=== PATIENT | male | born 1970 | race Caucasian/White ===

== ENCOUNTER 2016-11-12 12:00 | Inpatient (IN) | payer OTHER ==
[~2016-11-12] VITALS: Ht 172.7 cm; Wt 90.7 kg
--- NOTE | ~2016-11-12 | PN ---
Unit #: [id number] #: [id number] Patient: KARON PENNY [id number] [facility] [address] [place] [address] [id number] MR#: [id number] NAME: KARON PENNY ROOM: P254 Age: 45 Sex: M Admission Date: 11/12/2016 : 1970 Attending Physician: Lucille Garcia M.D. Admitting Physician: Lucille Garcia M.D. Primary Care Physician: [place] Doctor Not In System [facility] PROGRESS NOTES DATE 11/20/2016 DISCUSSION Mr. Penny is a 45-year-old white male who was seen today and chart was reviewed and case was discussed with the staff. He has been anxious, withdrawn and seclusive to himself. Meanwhile, he has been cooperative with treatment recommendations and has been taking medications and tolerating them fairly well with no reported side effects. MENTAL STATUS EXAMINATION Middle-aged white male who was casually dressed with fair personal hygiene and appears to be in no acute distress or discomfort. He was awake and alert on interaction with intact orientation. His mood was anxious and depressed with congruent affect. His speech is slow and restricted in content. He denies any current suicidal or homicidal ideation and also denies any auditory or visual hallucinations. His insight and judgement remains slightly impaired. TREATMENT PLAN 1. Will continue on his current medications and treatment protocol. Will monitor his response to the medications and make further adjustments as needed. 2. Will continue to follow up. Dictated by... Antonino Matias/lexis TD: 11/20/2016 18:40 JOB #: [id number] Unit #: [id number] #: [id number] Patient: KARON PENNY PROGRESS NOTES Page 1 of 1 X Lucille Garcia MD PROGRESS NOTE
--- NOTE | ~2016-11-12 | HP ---
Unit #: [id number] #: [id number] Patient: ANTONIO PENNY [id number] [facility] [address] [place] [address] [id number] I MR#: [id number] NAME: ANTONIO PENNY ROOM: P254 Age: 45 Sex: M Admission Date: 11/12/2016 : 1970 Attending Physician: Lucille Garcia M.D. Admitting Physician: Lucille Garcia M.D. Primary Care Physician: Generic Doctor Not In System HISTORY AND PHYSICAL HISTORY OF PRESENT ILLNESS Antonio is a 45-year-old male admitted on 11/12/[address] [place] [address] for depression with attempted suicide by overdosing on his medications. MEDICAL HISTORY Hypertension and herniated disc. PAST SURGICAL HISTORY Left arm fracture with surgical repair. SOCIAL HISTORY Smokes less than a pack of cigarettes daily, denies alcohol use and does report occasional use of cocaine. He is currently and homeless. FAMILY HISTORY Noncontributory. REVIEW OF SYSTEMS CONSTITUTIONAL: No fever or chills. HEENT: Denies any sore throat, ear pain or runny nose. CARDIOVASCULAR: Denies chest pain, irregular heart rhythm or palpitations. CHEST: Denies shortness of breath or cough. No hemoptysis. GASTROINTESTINAL: Denies nausea, vomiting, diarrhea or chronic constipation. ENDOCRINE: Denies history of increased thirst or urination. No recent significant weight loss or gain. GENITOURINARY: Denies dysuria, frequency, or hematuria. SKIN: Denies any rashes. HEMATOLOGIC: Denies history of increased bleeding or bruising. MUSCULOSKELETAL: Denies any hot, swollen joints. No generalized muscle pain. NEUROLOGIC: Denies problems with vision or speech. No frequent, severe headaches. No numbness, tingling or weakness in any extremities. Denies loss of bladder or bowel control. CURRENT MEDICATIONS 1. Gabapentin 2. Olanzapine 3. Mirtazapine 4. Perphenazine 5. Wellbutrin Unit #: [id number] #: [id number] Patient: ANTONIO PENNY 6. Pantoprazole 7. Atenolol ALLERGIES No known drug allergies. PHYSICAL EXAMINATION GENERAL: Alert, oriented, in no acute distress. VITAL SIGNS: Blood pressure 143/84, heart rate 88, temperature 98.3. HEIGHT: 5 foot 8 inches. WEIGHT: 200 pounds. SKIN: Warm and dry without rash or lesion. HEENT: Normocephalic. TMs not viewed. Oral and nasal passages clear. Conjunctivae clear. PERRLA. EOMs intact. NECK: Supple without lymphadenopathy or thyromegaly. HEART: Regular rate and rhythm without murmur. LUNGS: Clear. ABDOMEN: Soft, nontender, without masses or hepatosplenomegaly. : Not done. EXTREMITIES: No evidence of cyanosis, clubbing or edema. Moves all without focal deficit. NEUROLOGICAL: Grossly within normal limits. Cranial Nerves: II: Visual mcdonald are intact. III, IV AND : Extraocular movements are intact. Pupils are equal, round and reactive to light. V: Facial sensation is grossly normal. VII: Facial movements and expression are normal. VIII: Auditory acuity grossly intact. IX, X: Uvula is midline. Phonation is normal. XI: Patient shrugs shoulders and turns head normally. XII: Tongue protrudes in the midline. Sensory and Motor Function: Sensory and motor sensation is grossly normal. Motor: moves all extremities well. Coordination: Gait is normal. Deep Tendon Reflexes: Intact. IMPRESSION 1. Psychiatric admission. 2. Hypertension. 3. Herniated disc. RECOMMENDATIONS Psychiatric, per psychiatrist. MEDICAL: I see no contraindications to participating in facility's activities. MEDICAL PROGNOSIS Good. MEDICAL CONDITION Stable. Dictated by... Brittaney ArreguinPPaulRAdriana Unit #: [id number] #: [id number] Patient: ANTONIO PENNY RANULFO/monae TD: 11/13/2016 23:42 JOB #: [id number] HISTORY AND PHYSICAL Page 1 of 1 X WILL CARDENAS APRN HISTORY AND PHYSICAL
--- NOTE | ~2016-11-12 | DS ---
Unit #: [id number] #: [id number] Patient: KARON PENNY [id number] [facility] [address] [place] [address] [id number] I MR#: [id number] NAME: KARON PENNY ROOM: P254 Age: Sex: M Admission Date: 11/12/2016 : 1970 Discharge Date: 11/21/2016 Attending Physician: Lucille Garcia M.D. Primary Care Physician: Generic Doctor Not In System DISCHARGE SUMMARY ADDENDUM Mr. Penny was scheduled to be discharged a couple of days ago. However, he reported persistent depressive symptoms and feelings of hopelessness, and as such discharge planning was canceled. He was maintained on a level of precaution and was seen to be doing much better, and has been taking medications regularly and was tolerating them fairly well. As such it was decided he will be discharged home. We will continue treatment on outpatient basis. CONDITION ON DISCHARGE Stable. PROGNOSIS Fair. Dictated by... Antonino Matias/cody TD: 11/21/2016 07:37 JOB #: [id number] DISCHARGE SUMMARY Page 1 of 1 X Lucille Garcia MD X DISCHARGE SUMMARY
--- NOTE | ~2016-11-12 | PN ---
Unit #: [id number] #: [id number] Patient: KARON PENNY [id number] [facility] [address] [place] [address] [id number] I MR#: [id number] NAME: KARON PENNY ROOM: P254 Age: 45 Sex: M Admission Date: 11/12/2016 : 1970 Attending Physician: Lucille Garcia M.D. Admitting Physician: Lucille Garcia M.D. Primary Care Physician: [place] Doctor Not In System [facility] PROGRESS NOTES DATE OF SERVICE 11/13/2016 DISCUSSION Mr. Penny is a 45-year-old white male with mood disorder who was seen today. Chart was reviewed and case was discussed with the staff. He has been anxious, withdrawn, depressed, and rather seclusive to himself. Meanwhile, he has been cooperative with the treatment recommendations and has been taking the medications and tolerating them fairly well with no reported side effects. MENTAL STATUS EXAMINATION Young white male who is casually dressed with fair personal hygiene, appears to be in no acute distress or discomfort. The patient was awake and alert with impaired attention and concentration. His mood is anxious with congruent affect. He denies any suicidal or homicidal ideations. His insight and judgment remain slightly impaired. TREATMENT PLAN 1. We will continue him on his current treatment protocol. We will monitor his response to the medications and make further adjustments as needed. 2. We will continue to follow up. Dictated by... Lucille Garcia M.D. IAA/bzg TD: 11/13/2016 08:52 JOB #: [id number] Unit #: [id number] #: [id number] Patient: KARON PENNY PROGRESS NOTES Page 1 of 1 X Lucille Garcia MD X PROGRESS NOTE
--- NOTE | ~2016-11-12 | PN ---
Unit #: [id number] #: [id number] Patient: KARON PENNY [id number] [facility] [address] [place] [address] [id number] I MR#: [id number] NAME: KARON PENNY ROOM: P254 Age: 45 Sex: M Admission Date: 11/12/2016 : 1970 Attending Physician: Lucille Garcia M.D. Admitting Physician: Lucille Garcia M.D. Primary Care Physician: [place] Doctor Not In System [facility] PROGRESS NOTES DATE November 17, 2016 DISCUSSION Mr. Penny is a 45-year-old white male, who was seen today and chart was reviewed and the case was discussed with the staff. He has been seclusive to himself and just eats and sleeps, and does not participate in any therapy groups, or treatment related activities, and appears to be calm and sleeping most of the time, and yet never interacted, he states that he is not feeling good and that he still has been having depression and suicidal thoughts and then shows that will entirely relate that piece of information to me despite my telling him that we have a therapist and an adviser and the dosage that the medications are and at maximum level. However, he does not appear to be actively investing in treatment or participating in treatment groups, or crisis socializer, minimal interactions. MENTAL STATUS EXAMINATION Middle-aged white male, who was casually dressed with fair personal hygiene and appears to be in no acute distress or discomfort. He was awake and alert with intact orientation. His mood is anxious with a congruent affect. He denies any suicidal or homicidal ideations. His insight and judgment remain slightly impaired. TREATMENT PLAN We will continue him on his current medications and treatment protocol, and will monitor his response and encourage him to show better compliance with the medications and encourage him to followup. Dictated by... Antonino Matias/vernon TD: 11/18/2016 12:11 JOB #: [id number] Unit #: [id number] #: [id number] Patient: KARON PENNY [facility] NOTES Page 1 of 1 X Lucille Garcia MD PROGRESS NOTE
--- NOTE | ~2016-11-12 | DS ---
Unit #: [id number] #: [id number] [facility] [id number] [facility] [address] [place] [address] [id number] I MR#: [id number] NAME: KARON WILKINS ROOM: [facility] Age: 45 Sex: M Admission Date: 11/12/2016 : 1970 Discharge Date: Attending Physician: Lucille Garcia M.D. Primary Care Physician: Generic Doctor Not In System DISCHARGE SUMMARY IDENTIFYING DATA Mr. Wilkins is a 45-year-old white male, who is a resident of [place], [place], and was self-referred to the hospital on a voluntary basis. DISCHARGE DIAGNOSES Psychiatric: Major depressive disorder, recurrent, moderate, without psychotic features. Medical: Hypertension. Stressors: Moderate psychosocial stressors. HISTORY OF PRESENT ILLNESS Please see initial psychiatric evaluation for details. PAST PSYCHIATRIC HISTORY Please see initial psychiatric evaluation for details. PAST MEDICAL HISTORY Please see initial psychiatric evaluation for details. HOSPITAL COURSE The patient was admitted to the adult psychiatric unit at [facility] and was oriented to the hospital environment. Routine p.r.n. medications were initiated and he was started back on his home medications and medications were adjusted and he was closely monitored. He was complaining of persistent depressive symptoms and as such, combination of antidepressant medications were maintained and he was closely monitored. He was taking the medications regularly and was tolerating them fairly well and was able to show a decent and therapeutic response with improvement in depression and anxiety, and was denying any suicidal ideations, intent, or plan and as such, it was decided that he will be discharged home and will continue treatment on an outpatient basis. DISCHARGE MEDICATIONS Wellbutrin SR 150 mg b.i.d. for depression, Remeron 45 mg at bedtime for depression, and Zyprexa 20 mg at bedtime for depression. DISCHARGE CONDITION Stable. PROGNOSIS Fair. Unit #: [id number] #: [id number] Patient: KARON WILKINS Dictated by... Antonino Matias/chelsea TD: 11/20/2016 00:14 JOB #: [id number] DISCHARGE SUMMARY Page 1 of 1 X Lucille Garcia MD SUMMARY
--- NOTE | ~2016-11-12 | PN ---
Unit #: [id number] #: [id number] Patient: KARON PENNY [id number] [facility] [address] [place] [address] [id number] I MR#: [id number] NAME: KARON PENNY ROOM: P254 Age: 45 Sex: M Admission Date: 11/12/2016 : 1970 Attending Physician: Lucille Garcia M.D. Admitting Physician: Lucille Garcia M.D. Primary Care Physician: [place] Doctor Not In System [facility] PROGRESS NOTES DATE OF SERVICE 11/15/2016 DISCUSSION Mr. Penny is a 45-year-old white male who was seen today. Chart was reviewed and case was discussed with the staff. He has been anxious, withdrawn, depressed, and seclusive to himself. Meanwhile, he has been cooperative with the treatment recommendations and has been taking the medications and tolerating them fairly well with no reported side effects. MENTAL STATUS EXAMINATION Middle-aged white male who is casually dressed with fair personal hygiene, appears to be in no acute distress or discomfort. He was awake and alert with impaired attention and concentration. His mood is anxious with congruent affect. He denies any suicidal or homicidal ideations and also denies any auditory or visual hallucinations. His insight and judgment remain slightly impaired. TREATMENT PLAN 1. We will continue him on his current medications and treatment protocol. We will monitor her response to medications and make further adjustments as needed. 2. We will continue to follow up. Dictated by... Lucille Garcia M.D. IAA/bzg TD: 11/15/2016 11:11 JOB #: [id number] Unit #: [id number] #: [id number] Patient: KARON PENNY PROGRESS NOTES Page 1 of 1 X Lucille Garcia MD PROGRESS NOTE
--- NOTE | ~2016-11-12 | PA ---
Unit #: [id number] #: [id number] Patient: KARON PENNY [id number] [facility] [address] [place] [address] [id number] I MR#: [id number] NAME: KARON PENNY ROOM: P254 Age: 45 Sex: M Admission Date: 11/12/2016 : 1970 Date of Assessment: Attending Physician: Lucille Garcia M.D. Admitting Physician: Lucille Garcia M.D. Primary Care Physician: Generic Doctor Not In System PSYCHIATRIC ASSESSMENT DATE OF SERVICE 11/13/2016. IDENTIFYING DATA Mr. Penny is a 45-year-old, , white male, who is a resident of [place], [place], and was self-referred to the hospital on a voluntary basis. CHIEF COMPLAINT "I overdosed on pills." HISTORY OF PRESENT ILLNESS Mr. Penny is a 45-year-old white male with a history of borderline personality disorder, mood disorder and substance abuse called EMS and reported overdosing on psychotropic medication, stating that he took every pill in each bottle and tried to enumerate that he has been having difficulty remembering and does endorse increasing depression, was taken to the emergency room where he was intubated in the emergency room and was admitted to the medical intensive care unit. Once cleared, he was still endorsing some persistent depressive symptoms, therefore recommendation for inpatient level of care was made and the patient was transferred to us. He reports that he has been struggling with depression, has multiple stressors and poor social support system and reports feelings of hopelessness and helplessness, and suicidal ideations and as such, recommendation for psychiatric treatment was made and patient was transferred to us. SUBSTANCE ABUSE HISTORY The patient denies any alcohol or drug abuse, though he reports that he has been experimenting with crack cocaine periodically. PAST PSYCHIATRIC HISTORY The patient has had a history of psychiatric treatment in the past, and review of the medical records indicate that currently he is on Remeron and Wellbutrin, though it is not clear if he was compliant with the medication before coming to the hospital as he does not appear to be showing a therapeutic response. PAST MEDICAL HISTORY The patient's medical history is significant for hypertension. ALLERGIES No known medication allergies. Unit #: [id number] #: [id number] Patient: KARON PENNY PERSONAL AND SOCIAL HISTORY A 45-year-old white male, who reports that he is single, unemployed, and essentially homeless and has poor social support system. MENTAL STATUS EXAMINATION Middle-aged white male, who was casually dressed with fair personal hygiene, appears to be in no acute distress or discomfort. He was awake and alert on interaction with intact orientation to time, place, and person. His mood was anxious and depressed with a congruent affect. His speech was slow and restricted in content. His thought processes were disorganized with some looseness of associations and suicidal ideations. His insight and judgment remain significantly impaired. DIAGNOSTIC IMPRESSION Psychiatric: Major depressive disorder, recurrent, moderate, without psychotic features. Medical: Hypertension. Stressors: Moderate psychosocial stressors. TREATMENT PLAN 1. The patient has presented with a history of mood disorder, and has been decompensating. We will recommend inpatient hospitalization for safety and stabilization. We will start him back on his home medications. We will adjust the medications and monitor response. 2. Supportive therapy was provided to the patient. ESTIMATED LENGTH OF STAY 5 to 7 days. ABILITY TO HELP SELF Limited. WILLINGNESS TO HELP SELF The patient appears to be willing to help self. STRENGTHS 1. Communicative. 2. Cooperative. PROBLEMS 1. Chronic dysphoric symptoms. 2. Poor social support system. DISCHARGE CRITERIA This will be contingent upon the patient's ability to show resolution of his depression and anxiety and his ability to stay safe to himself, particularly after discharge from the hospital. Dictated by... Antonino Matias/chelsea Unit #: [id number] #: [id number] Patient: KARON PENNY TD: 11/13/2016 07:30 JOB #: [id number] PSYCHIATRIC ASSESSMENT Page 1 of 1 X Lucille Garcia MD X PSYCHIATRIC ASSESSMENT
--- NOTE | ~2016-11-12 | PN ---
Unit #: [id number] #: [id number] Patient: KARON PENNY [id number] [facility] [address] [place] [address] [id number] I MR#: [id number] NAME: KARON PENNY ROOM: P254 Age: 45 Sex: M Admission Date: 11/12/2016 : 1970 Attending Physician: Lucille Garcia M.D. Admitting Physician: Lucille Garcia M.D. Primary Care Physician: [place] Doctor Not In System [facility] PROGRESS NOTES DATE OF SERVICE 11/14/2016 DISCUSSION Mr. Penny is a 45-year-old white male who was seen today. Chart was reviewed and case was discussed with staff. He remains anxious, withdrawn, depressed, and rather seclusive to himself and reports persistent feelings (1) __ suicidal thoughts. Meanwhile, he has been taking the medications and tolerating them fairly well though has not been able to show therapeutic response yet. MENTAL STATUS EXAMINATION Middle-aged white male who is casually dressed with fair personal hygiene, appears to be in no acute distress or discomfort. He was awake and alert on interaction with intact orientation. His mood is anxious with congruent affect. His speech is slow and goal-directed. He denies any suicidal or homicidal ideations and also denies any auditory or visual hallucinations. His insight and judgment remain slightly impaired. TREATMENT PLAN 1. We will continue him on his current medications and treatment protocol. We will monitor his response to medications and make further adjustments as needed. 2. We will continue to follow up. Dictated by... Antonino Matias/cody TD: 11/14/2016 13:59 JOB #: [id number] Unit #: [id number] #: [id number] Patient: KARON PENNY PROGRESS NOTES Page 1 of 1 X Lucille Garcia MD PROGRESS NOTE
--- NOTE | ~2016-11-12 | PN ---
Unit #: [id number] #: [id number] Patient: KARON PENNY [id number] [facility] [address] [place] [address] [id number] I MR#: [id number] NAME: KARON PENNY ROOM: P254 Age: 45 Sex: M Admission Date: 11/12/2016 : 1970 Attending Physician: Lucille Garcia M.D. Admitting Physician: Lucille Garcia M.D. Primary Care Physician: [place] Doctor Not In System [facility] PROGRESS NOTES DATE 11/16/2016 DISCUSSION Mr. Penny is a 45-year-old white male who was seen today and chart was reviewed and case was discussed with the staff. He remains anxious, withdrawn, depressed and seclusive to himself and has been expressing feelings of hopelessness. Meanwhile, he has been taking medications and tolerating them fairly well with no reported side effects. MENTAL STATUS EXAMINATION Middle-aged white male who was casually dressed with fair personal hygiene and appears to be in no acute distress or discomfort. He was awake and alert with intact orientation. His mood was anxious and depressed with congruent affect. His speech is slow and goal-directed. He denies any suicidal or homicidal ideation and also denies any auditory or visual hallucinations. His insight and judgement remains slightly impaired. TREATMENT PLAN 1. Will continue his current treatment protocol. Will monitor his response to medications and make further adjustments as needed. 2. Will continue to follow up. Dictated by... Antonino Matias/lexis TD: 11/16/2016 22:49 JOB #: [id number] Unit #: [id number] #: [id number] Patient: KARON PENNY PROGRESS NOTES Page 1 of 1 X Lucille Garcia MD PROGRESS NOTE
--- NOTE | ~2016-11-12 | PN ---
Unit #: [id number] #: [id number] Patient: KARON PENNY [id number] [facility] [address] [place] [address] [id number] I MR#: [id number] NAME: KARON PENNY ROOM: P254 Age: 45 Sex: M Admission Date: 11/12/2016 : 1970 Attending Physician: Lucille Garcia M.D. Admitting Physician: Lucille Garcia M.D. Primary Care Physician: Generic Doctor Not In System [facility] PROGRESS NOTES DATE November 19, 2016 DISCUSSION Mr. Penny is a 45-year-old white male who was seen today and chart was reviewed, and the case was discussed with the staff. He has been anxious, withdrawn and rather seclusive to himself. Meanwhile, he has been taking medications and tolerating them fairly well with no reported side effects. MENTAL STATUS EXAMINATION Middle-aged white male who was casually dressed with fair personal hygiene. He was awake and alert on interaction with intact orientation. His mood was anxious with a congruent affect. Denies any suicidal or homicidal ideation. His insight and judgment remain slightly impaired TREATMENT PLAN 1. We will continue his current medications and treatment protocol. We will monitor response to medications and make further adjustments as needed. 2. We will continue to follow up. Dictated by... Antonino Matias/chelsea TD: 11/19/2016 10:20 JOB #: [id number] [facility] PROGRESS NOTES Page 1 of 1 X Lucille Garcia MD X PROGRESS NOTE
[2016-11-13 09:50] LABS: BASOPHIL% 0.5 % (0-2.5); EOSINOPHIL# 0.3 X10e3 (0-0.7); HEMATOCRIT 40.7 % (38.0-50.0); LYMPHOCYTE# 2.6 X10e3 (1.0-3.5); LYMPHOCYTE% 26.3 % (17.0-45.0); MEAN CELL VOLUME 93.4 FL (83-96); MEAN CORPUSCULAR HEMOGLOBIN 32.2 PG (28-34); MEAN CORPUSCULAR HGB CONC 34.4 g/dL (30-36); MEAN PLATELET VOLUME 7.4 FL (6.5-11.5); MONOCYTE# 0.8 X10e3 (0-1.0); MONOCYTE% 8.2 % (3.0-12.0); NEUTROPHIL# 6.1 X10e3 (1.5-7.1); PLATELET COUNT 226 X10e3 (140-420); RED BLOOD COUNT 4.35 X10e (3.90-5.60); RED CELL DISTRIBUTION WIDTH 13.3 % (11.0-15.5); WHITE BLOOD COUNT 9.9 X10e3 (4.0-10.5)
[2016-11-13 10:01] LABS: DIFF IND NO
[2016-11-13 10:26] LABS: ALBUMIN SERUM 3.6 g/dL (3.5-5.0); BILIRUBIN,TOTAL 0.4 mg/dL (0.2-2.0); BUN/CREATININE RATIO 13.33; CREATININE SERUM 0.9 mg/dL (0.6-1.4); GLOM FILT RATE Estimated 102.1 mL/min (>60); POTASSIUM 4.1 mmol/L (3.5-5.1)
[2016-11-14 09:54] LABS: URINE APPEARANCE CLEAR; URINE BILIRUBIN NEG (NEG); URINE BLOOD NEG (NEG); URINE COLOR YELLOW; URINE GLUCOSE NEG (NEG); URINE KETONE NEG (NEG); URINE LEUKOCYTE ESTERASE NEG (NEG); URINE NITRATE NEG (NEG); URINE PROTEIN NEG (NEG); URINE UROBILINOGEN 0.2 MG/DL (NEG)
[2016-11-14 10:35] LABS: AMPHETAMINE NEG (NEG); BARBITURATES NEG (NEG); BENZODIAZEPINES NEG (NEG); COCAINE NEG (NEG); MARIJUANA NEG (NEG); OPIATES NEG (NEG); TRICYCLIC ANTIDEPRESSANTS NEG (NEG); U METHADONE NEG (NEG)
== END 2016-11-21 11:00 | disposition home or self-care (01) | DRG 885 ==
LOC: P2L 18:30
PROVIDERS: Psychiatry & Neurology Psychiatry
DX: F33.1 Major depressive disorder, recurrent, moderate (principal); I10 Essential (primary) hypertension; F17.210 Nicotine dependence, cigarettes, uncomplicated
CPT/HCPCS: 80053; 80307; 81003; 85025